=== PATIENT | female | born 1995 | race Hispanic/Latino ===

== ENCOUNTER 2021-10-23 01:50 | Emergency (ER) | payer SELFPAY ==
[2021-10-23 02:17] VITALS: BP 129/64
[2021-10-23 02:37] LABS: Basophils % (Auto) 0.3 % (0.0-1.8); Eosinophils % (Auto) 0.3 % (0.0-4.3); Hematocrit 39.6 % (30.3-42.9); Hemoglobin 12.8 gm/dl (10.1-14.3); Lymphocytes # (Auto) 1.2 K/mm3 (1.2-5.4); Lymphocytes % (Auto) 9.6 % (13.4-35.0); Mean Corpuscular HGB Conc 32 % (30-34); Mean Corpuscular Volume 93 fl (79-97); Monocytes # (Auto) 0.5 K/mm3 (0.0-0.8); Monocytes % (Auto) 4.4 % (0.0-7.3); Platelet Count 243 K/mm3 (140-440); Red Blood Count 4.24 M/mm3 (3.65-5.03)
[2021-10-23] MEDS ORDERED: IBUPROFEN 600 MG TAB PO ONE (02:42)
[2021-10-23] MEDS ORDERED: oxyCODONE /ACETAMINOPHEN 5-325MG TAB PO ONE (02:42)
[2021-10-23] MEDS ORDERED: ONDANSETRON 4 MG ODT TAB PO ONE (02:42)
[2021-10-23 03:30] LABS: Alanine Aminotransferase 11 units/L (7-56); Albumin 4.6 g/dL (3.9-5); Blood Urea Nitrogen 12 mg/dL (7-17); Calcium 9.1 mg/dL (8.4-10.2); Hemolysis Index 10
[2021-10-23 03:32] LABS: BUN/Creatinine Ratio 24
--- NOTE | 2021-10-23 04:47 | Ultrasound Report ---
US OB <= 14 weeks fetus, US OB transvaginal INDICATION / CLINICAL INFORMATION: Pelvic pain, vaginal bleeding, molar . COMPARISON: None available. FINDINGS: Transabdominal and transvaginal imaging was performed. The uterus measures 8 cm in length. No endometrial fluid or fluid collections are seen. Ovaries are unremarkable. There is flow to both ovaries. No adnexal lesions, no free fluid. IMPRESSION: 1. No sonographic evidence of intrauterine . No significant abnormality. Signer Name: Carlos Mcgraw MD Signed: 10/23/2021 4:43 AM Workstation Name: [id number]
--- NOTE | 2021-10-23 05:22 | Emergency Department Report ---
ED Female HPI - General Chief complaint: Vaginal Bleeding Stated complaint: SEVERE VAGINAL BLEEDING/VOMITING/ Source: patient Mode of arrival: Ambulatory Limitations: No Limitations - History of Present Illness Initial comments: Patient is a A0 26-year-old female with a history of seizures and who is approximately 6 weeks gestation and who was recently diagnosed with molar about a week ago presents to the ED with complaint of acute onset per sistent suprapubic pain and heavy vaginal bleeding for the last 12 hours. Patient states that she contacted the [employer] physician who advised her to come to the ED for evaluation. Patient states that she had previously scheduled a D&C for molar that was diagnosed about 1 week ago. Patient denies dizziness, syncope, fever, chills, nausea and vomiting, diarrhea, cough, sore throat, chest pain, shortness of breath, headache, dysuria or urinary frequency and urgency. MD Complaint: vaginal bleeding, pelvic pain -: Sudden, days(s) (2) Location: suprapubic, other (vagina) Radiation: suprapubic Severity: severe Severity scale (0 -10): 7 Quality: cramping, sharp, aching Consistency: constant Improves with: none Worsens with: none Are you Now?: Yes (yes, molar ) Associated Symptoms: denies other symptoms, vaginal bleeding, abdominal pain (suprapubic pain). denies: nausea/vomiting, fever/chills, headaches, loss of appetite, dysuria, hematuria, rash, shortness of breath, syncope, weakness - Related Data Sexually active: Yes : 1 Para: 0 A: 0 Previous Rx's Medication Instructions Recorded Last Taken Type Ibuprofen [Motrin] 600 mg PO Q8H PRN #30 tablet 10/23/21 Unknown Rx cephALEXin [Keflex] 500 mg PO Q8HR #30 cap 10/23/21 Unknown Rx Allergies Allergy/AdvReac Type Severity Reaction Status Date / Time No Known Allergies Allergy Verified 10/23/21 02:09 ED Review of Systems ROS: Stated complaint: SEVERE VAGINAL BLEEDING/VOMITING/ Other details as noted in HPI Constitutional: denies: chills, fever Eyes: denies: eye pain, eye discharge, vision change ENT: denies: ear pain, throat pain Respiratory: denies: cough, shortness of breath, wheezing Cardiovascular: denies: chest pain, palpitations Endocrine: no symptoms reported Gastrointestinal: abdominal pain (suprapubic ). denies: nausea, vomiting, diarrhea, constipation, hematemesis, hematochezia Genitourinary: abnormal menses (vaginal bleeding). denies: urgency, dysuria, discharge Musculoskeletal: denies: back pain, joint swelling, arthralgia Skin: denies: rash, lesions Neurological: denies: headache, weakness, paresthesias Psychiatric: denies: anxiety, depression Hematological/Lymphatic: denies: easy bleeding, easy bruising ED Past Medical Hx - Past Medical History Previous Medical History?: Yes Hx Seizures: Yes - Surgical History Past Surgical History?: No - Medications Home Medications: Home Medications Medication Instructions Recorded Confirmed Last Taken Type Ibuprofen [Motrin] 600 mg PO Q8H PRN #30 tablet 10/23/21 Unknown Rx cephALEXin [Keflex] 500 mg PO Q8HR #30 cap 10/23/21 Unknown Rx ED Physical Exam - General Limitations: No Limitations General appearance: alert, in no apparent distress - Head Head exam: Present: atraumatic, normocephalic, normal inspection - Eye Eye exam: Present: normal appearance, PERRL, EOMI Pupils: Present: normal accommodation - ENT ENT exam: Present: normal exam, normal orophraynx, mucous membranes moist, TM's normal bilaterally, normal external ear exam - Neck Neck exam: Present: normal inspection, full ROM. Absent: tenderness - Respiratory Respiratory exam: Present: normal lung sounds bilaterally. Absent: respiratory distress, wheezes, rales, rhonchi, chest wall tenderness, accessory muscle use, decreased breath sounds, prolonged expiratory - Cardiovascular Cardiovascular Exam: Present: regular rate, normal rhythm, normal heart sounds. Absent: systolic murmur, diastolic murmur, rubs, gallop - GI/Abdominal GI/Abdominal exam: Present: soft, tenderness (Palpable suprapubic tenderness), normal bowel sounds. Absent: guarding, rebound, hyperactive bowel sounds, hypoactive bowel sounds, mass - Bi-manual exam: Present: other (Pelvic exam deferred at this time, patient preferred her own [employer]) - Extremities Exam Extremities exam: Present: normal inspection, full ROM, normal capillary refill. Absent: tenderness, pedal edema - Back Exam Back exam: Present: normal inspection, full ROM. Absent: tenderness, CVA tenderness (R), CVA tenderness (L), muscle spasm, paraspinal tenderness, vertebral tenderness - Neurological Exam Neurological exam: Present: alert, oriented X3, CN II-XII intact, normal gait, reflexes normal - Psychiatric Psychiatric exam: Present: normal affect, normal mood - Skin Skin exam: Present: warm, dry, intact, normal color. Absent: rash ED Course Vital Signs 10/23/21 02:09 Temperature 98.7 F Pulse Rate 88 Respiratory 16 Rate Blood Pressure 129/64 [Right] O2 Sat by Pulse 100 Oximetry ED Medical Decision Making - Lab Data Result diagrams: 10/23/21 02:22 10/23/21 02:59 - Radiology Data Radiology results: report reviewed [facility] [address] [place] [address] Ultrasound Report Signed Patient: SURENDRA KIRK MR#: [id number] : 1995 Acct:[id number] Age/Sex: 26 / F ADM Date: 10/23/21 Loc: ED Attending Dr: Ordering Physician: TOR PARRISH Date of Service: 10/23/21 Procedure(s): US OB transvaginal Accession Number(s): [id number] cc: TOR PARRISH US OB <= 14 weeks fetus, US OB transvaginal INDICATION / CLINICAL INFORMATION: Pelvic pain, vaginal bleeding, molar . COMPARISON: None available. FINDINGS: Transabdominal and transvaginal imaging was performed. The uterus measures 8 cm in length. No endometrial fluid or fluid collections are seen. Ovaries are unremarkable. There is flow to both ovaries. No adnexal lesions, no free fluid. IMPRESSION: 1. No sonographic evidence of intrauterine . No significant abnormality. Signer Name: Carlos Mcgraw MD Signed: 10/23/2021 4:43 AM Workstation Name: [id number] Transcribed By: SW Dictated By: Carlos Mcgraw MD Electronically Authenticated By: Carlos Mcgraw MD Signed Date/Time: 10/23/21442 DD/ 0 TD/TT: -- [facility] [address] [place] [address] Ultrasound Report Signed Patient: SURENDRA KIRK MR#: [id number] : 1995 Acct:[id number] Age/Sex: 26 / F ADM Date: 10/23/21 Loc: ED Attending Dr: Ordering Physician: TOR PARRISH Date of Service: 10/23/21 Procedure(s): US OB <= 14 weeks fetus Accession Number(s): [id number] cc: TOR PARRISH US OB <= 14 weeks fetus, US OB transvaginal INDICATION / CLINICAL INFORMATION: Pelvic pain, vaginal bleeding, molar . COMPARISON: None available. FINDINGS: Transabdominal and transvaginal imaging was performed. The uterus measures 8 cm in length. No endometrial fluid or fluid collections are seen. Ovaries are unremarkable. There is flow to both ovaries. No adnexal lesions, no free fluid. IMPRESSION: 1. No sonographic evidence of intrauterine . No significant abnorma lity. Signer Name: Carlos Mcgraw MD Signed: 10/23/2021 4:43 AM Workstation Name: [id number] Transcribed By: YVONNE Dictated By: Carlos Mcgraw MD Electronically Authenticated By: Carlos Mcgraw MD Signed Date/Time: 10/23/21442 DD/ 0 TD/TT: Print Print - Medical Decision Making This is a A0 26-year-old female with a history of seizures and who is approximately 6 weeks gestation and who was recently diagnosed with molar about a week ago presents to the ED with complaint of acute onset persistent suprapubic pain and heavy vaginal bleeding for the last 12 hours. Patient states that she contacted the [employer] physician who advised her to come to the ED for evaluation. Patient states that she had previously scheduled a D&C for molar that was diagnosed about 1 week ago. In the ED, patient is alert and oriented x3 and is not in any distress. Patient was treated for pain in the ED. Lab test results were reviewed and showed acute leukocytosis of 12,300 and hCG quant of [id number]. Transvaginal ultrasound showed no sonographic evidence of intrauterine . No significant abnormality. No evidence of molar . On reevaluation, patient's pain is well controlled with me dication. Based on these findings, the patient may have passed a molar as was previously diagnosed following the onset of vaginal bleeding 12 hours ago. Patient was therefore discharged home on pain medications and advised to follow-up with her [employer] physician in 3 to 5 days for reevaluation or return to the ED immediately if symptoms get worse. - Differential Diagnosis molar ; complete miscarriage; ovarian cyst; UTI; ectopic Critical care attestation.: If time is entered above; I have spent that time in minutes in the direct care of this critically ill patient, excluding procedure time. ED Disposition Clinical Impression: Complete molar , Vaginal bleeding in , Acute urinary tract infection Disposition: 01 HOME / SELF CARE / HOMELESS Is pt being admited?: No Does the pt Need Aspirin: No Condition: Stable Instructions: Urinary Tract Infection, Adult, [id number], and Urinary Tract Infection, Molar Additional Instructions: Your lab test results were reviewed and are all nonactionable. Transvaginal ultrasound showed no sonographic evidence of intrauterine . No significant abnormality. There is no sign of molar at this time, and that means that you may have completely passed the previously diagnosed molar . Therefore take medication with food, drink plenty of fluids and follow-up with your [employer] physician in 3 to 5 days for reevaluation. Return to the ED immediately if symptoms get worse. Prescriptions: cephALEXin [Keflex] 500 mg PO Q8HR #30 cap Ibuprofen [Motrin] 600 mg PO Q8H PRN #30 tablet PRN Reason: Pain Referrals: LOGAN BERRY MD [Staff Physician] - 3-5 Days Time of Disposition: 05:29 Print Language: NICAR[place]
[2021-10-23 05:33] LABS: Bacteria,Urine 4+ /HPF (Negative); Mucus,Urine 1+ /HPF
[2021-10-23 05:34] LABS: RBC,Urine > 182.0 /HPF (0.0-6.0)
[2021-10-23 05:35] LABS: Bilirubin,Urine TNR (Negative); Blood,Urine TNR (Negative); Color,Urine Red (Yellow); PH,Urine TNR (5.0-7.0); Protein,Urine TNR mg/dL (Negative); Urobilinogen,Urine TNR mg/dL (<2.0)
[2021-10-23] MEDS ORDERED: cephALEXin 500 MG CAP PO ONE (05:37)
== END 2021-10-23 06:09 | disposition home or self-care (01) ==
LOC: ED 01:50
DX: O20.9 Hemorrhage in early pregnancy, unspecified (principal); O23.41 Unspecified infection of urinary tract in pregnancy, first trimester; N39.0 Urinary tract infection, site not specified; Z3A.01 Less than 8 weeks gestation of pregnancy; Z79.899 Other long term (current) drug therapy
CPT/HCPCS: 36415; 76801; 76817; 80053; 81001; 84702; 85025; 86900; 86901; 87086; 99284; J3490; Q0162